=== PATIENT | male | born 1955 | race Caucasian/White ===

== ENCOUNTER 2020-02-12 06:57 | Day surgery (SDC) | payer OTHER ==
[~2020-02-12] VITALS: Ht 180.3 cm; Wt 97.1 kg
[2020-02-12] MEDS ORDERED: fentaNYL citrate 0.05 MG/ML VIAL ONE (08:23)
[2020-02-12] MEDS ORDERED: MIDAZOLAM 5 MG/5 ML VIAL ONE (08:23)
[2020-02-12] MEDS ORDERED: LIDOCAINE 2% 100 MG/5 ML UJET TP ONE (08:23)
[2020-02-12] MEDS ORDERED: MIDAZOLAM 2 MG/2 ML VIAL IVP ONE (13:15)
[2020-02-12] MEDS ORDERED: fentaNYL citrate 0.05 MG/ML VIAL IVP ONE (13:15)
== END 2020-02-12 09:30 | disposition home or self-care (01) ==
LOC: MDS 06:57 → MMU 07:10 → MDS 09:30
PROVIDERS: ATTEND Internal Medicine Gastroenterology
DX: K52.9 Noninfective gastroenteritis and colitis, unspecified (principal); K63.5 Polyp of colon; I10 Essential (primary) hypertension; E78.5 Hyperlipidemia, unspecified; Z79.899 Other long term (current) drug therapy; Z85.6 Personal history of leukemia
CPT/HCPCS: 45380; 45385; 88305; J2250; J3010

== ENCOUNTER 2021-03-10 06:14 | Day surgery (SDC) | payer OTHER, MEDICARE ==
[~2021-03-10] VITALS: Ht 180.3 cm; Wt 93.0 kg
[2021-03-10] MEDS ORDERED: MIDAZOLAM 5 MG/5 ML VIAL ONE (07:27)
[2021-03-10] MEDS ORDERED: fentaNYL citrate 0.05 MG/ML VIAL ONE (07:27)
[2021-03-10] MEDS ORDERED: diphenhydrAMINE 50 MG/ML VIAL ONE (07:27)
[2021-03-10] MEDS ORDERED: LIDOCAINE 2% 100 MG/5 ML UJET TP ONE ×2 (07:28→07:45)
[2021-03-10] MEDS ORDERED: SIMETHICONE 40 MG/0.6 ML ONE (07:42)
[2021-03-10] MEDS ORDERED: SIMETHICONE 40 MG/0.6 ML PO ONE (07:45)
[2021-03-10] MEDS ORDERED: MIDAZOLAM 2 MG/2 ML VIAL IVP ONE (07:45)
[2021-03-10] MEDS ORDERED: fentaNYL citrate 0.05 MG/ML VIAL IVP ONE (07:45)
== END 2021-03-10 08:45 | disposition home or self-care (01) ==
LOC: MDS 06:14 → MMU 06:15 → MDS 08:45
PROVIDERS: ATTEND Internal Medicine Gastroenterology
DX: R19.7 Diarrhea, unspecified (principal); D12.2 Benign neoplasm of ascending colon; D12.3 Benign neoplasm of transverse colon; C91.11 Chronic lymphocytic leukemia of B-cell type in remission; Z86.010 Personal history of colon polyps; I10 Essential (primary) hypertension; Z79.899 Other long term (current) drug therapy; Z20.822 Contact with and (suspected) exposure to COVID-19
CPT/HCPCS: 45385; 87426; 88305; J2250; J3010; J1200